=== PATIENT | male | born 1995 | race Caucasian/White ===

== ENCOUNTER 2024-07-25 23:46 | Emergency (ER) | payer MEDICAID ==
[~2024-07-25] VITALS: Ht 170.2 cm; Wt 94.0 kg
[2024-07-25 23:54] VITALS: O2SAT 95
[2024-07-26 03:33] LABS: BASOPHILS % 0.4 % (0.0-2.0); EOSINOPHILS % 1.5 % (0.0-5.0); HEMOGLOBIN. 15.9 g/dL (14.0-18.0); LYMPHOCYTES % 17.2 % (20.0-50.0); MEAN CORPUSCULAR HEMOGLOBIN 29.4 pg (28.0-32.0); MEAN CORPUSCULAR HGB CONC 36.2 g/dL (31.0-37.0); MEAN CORPUSCULAR VOLUME 81.3 fL (80.0-94.0); MEAN PLATELET VOLUME 8.5 fl (7.4-10.4); MONOCYTES % 6.3 % (2.0-8.0); NEUTROPHILS % 74.6 % (40.0-76.0); PLATELET 244 x1000/uL (130-400); RED CELL DISTRIBUTION WIDTH 13.7 % (11.6-14.6); WHITE BLOOD COUNT 8.7 x1000/uL (4.5-11.0)
[2024-07-26 03:39] LABS: CHLORIDE 100 mEq/L (98-107); DIFFERENTIAL COMMENT 1; POTASSIUM 4.1 mEq/L (3.5-5.1); SODIUM 136 mEq/L (136-145)
[2024-07-26 03:40] LABS: CALCIUM 10.3 mg/dL (8.7-10.4); CARBON DIOXIDE 26 mEq/L (21-32)
[2024-07-26] MEDS: FAMOTIDINE 20MG TABLET PO ONE (03:40)
[2024-07-26] MEDS: MAGNESIUM/ALUMINUM HYDROXIDE/SIMETHICONE 30ML UDC PO ONE (03:40)
[2024-07-26] MEDS: ONDANSETRON HCL 4MG TABLET PO ONE (03:40)
[2024-07-26 03:45] LABS: CREATININE 1.1 mg/dL (0.6-1.3); GLUCOSE 132 mg/dL (70-105); UREA NITROGEN BLOOD 16 mg/dL (9-23)
[2024-07-26 03:47] LABS: ALANINE AMINOTRANSFERASE 158 IU/L (10-49); ALBUMIN 5.4 g/dL (3.2-4.8); ASPARTATE AMINOTRANSFERASE 73 IU/L (<34); BILIRUBIN DIRECT 0.1 mg/dL (<=3.0); BILIRUBIN TOTAL 0.4 mg/dL (0.1-1.0); PROTEIN TOTAL 8.1 g/dL (6.0-8.3)
[2024-07-26] MEDS ORDERED: MAG-55 MT (05:20)
[2024-07-26 05:23] LABS: GLUCOSE URINE NEGATIVE (NEGATIVE); KETONES URINE NEGATIVE (NEGATIVE)
[2024-07-26 05:38] VITALS: BP 150/96; PULSE 64; RESP 14; TEMP 37; O2SAT 95
[2024-07-26 05:46] LABS: CLARITY URINE HAZY (CLEAR); COLOR URINE YELLOW (YELLOW)
[2024-07-26 05:47] LABS: OCCULT BLOOD URINE NEGATIVE (NEGATIVE); PH URINE 8.5 (4.5-8.0); PROTEIN URINE 1+ (NEGATIVE); SPECIFIC GRAVITY URINE 1.025 (1.005-1.030)
[2024-07-26 05:48] LABS: LEUKOCYTE ESTERASE URINE NEGATIVE (NEGATIVE); NITRITE URINE NEGATIVE (NEGATIVE); UROBILINOGEN URINE 0.2 E.U./dL (0.2-1.0)
[2024-07-26 06:36] LABS: WBC URINE 0-2 /hpf (0-2)
[2024-07-26 06:37] LABS: BACTERIA URINE NONE SEEN; RBC URINE NONE SEEN /hpf (0-2); SQUAMOUS EPITHELIAL CELL URINE RARE /lpf (RARE/1+)
[2024-07-26 06:38] LABS: AMORPHOUS SEDIMENT URINE 1+ /lpf
== END 2024-07-26 05:40 | disposition home or self-care (01) ==
LOC: ER 23:46
DX: K76.0 Fatty (change of) liver, not elsewhere classified (principal); R07.89 Other chest pain
CPT/HCPCS: 99285; 71045; 93005; 76705; 80076; 80048; 81003; 83690; 85025; 36415; Q0162